=== PATIENT | male | born 1965 | race Caucasian/White ===

== ENCOUNTER 2016-11-24 22:48 | Observation (INO) | payer OTHER ==
[2016-11-25 00:02] LABS: #Basophils 0.1 thou/uL (0.0-0.2); #Eosinphils 0.1 thou/uL (0.0-0.7); #Lymphocytes 2.8 thou/uL (1.20-3.40); #Neutrophils 9.1 thou/uL (1.40-6.50); %Basophils 0.5 % (0.0-1.0); %Eosinophils 0.8 % (0.0-10.0); %Lymphocytes 21.5 % (21.0-51.0); %Monocytes 7.4 % (0.0-10.0); Hematocrit 41.5 % (42.0-52.0); Mean Platelet Volume 7.5 fL (7.4-10.4); Red Blood Cell (RBC) Count 4.39 mill/uL (4.70-6.10)
[2016-11-25] MEDS ORDERED: Ondansetron HCl/PF 4 MG/2 ML Vial ONE (00:03)
[2016-11-25 00:09] LABS: PTT 26.3 SEC (22.9-36.1); Prothrombin Time 14.2 SEC (12.0-14.7)
[2016-11-25 00:59] LABS: ALT (SGPT) 34 U/L (8-55); AST (SGOT) 25 U/L (5-34); Alkaline Phosphatase 68 U/L (40-150); Anion Gap 11 mmol/L (10-20); BUN (Urea Nitrogen) 14 mg/dL (8.4-25.7); Bilirubin, Total 0.8 mg/dL (0.2-1.2); Calc. Creatinine Clearance 0 mL/min (70-130); Calcium 9.4 mg/dL (7.8-10.44); Carbon Dioxide 28 mmol/L (22-29); Chloride 104 mmol/L (98-107); Estimated GFR-MDRD 78; Lipase 21 U/L (8-78); Protein, Total 7.1 g/dL (6.0-8.3)
[2016-11-25 02:25] LABS: Troponin I Less than 0.010 ng/mL (< 0.028)
[2016-11-25] MEDS ORDERED: Piperacillin/Tazobactam 4.5 GM VIAL ONE (02:28)
[2016-11-25] MEDS ORDERED: Sodium Chloride 0.9% 100 ML ONE (02:29)
[2016-11-25 02:31] LABS: Bilirubin Negative (Negative); Blood, Urine Negative (Negative); Glucose, Urine (Dipstick) Negative (Negative); Ketone, Urine Negative (Negative); Nitrite Negative (Negative); Protein, Urine (Dipstick) Negative (Neg-Trace)
[2016-11-25] MEDS ORDERED: Acetaminophen 325 MG TAB PO PRN (04:18)
[2016-11-25] MEDS ORDERED: Ondansetron ODT 4 MG TAB SL PRN (04:18)
[2016-11-25] MEDS ORDERED: Ondansetron HCl/PF 4 MG/2 ML Vial IVP PRN (04:18)
[2016-11-25] MEDS: Sodium Chloride 0.9% 1,000 ML IV SCH ×2 (04:22→14:00)
[2016-11-25 04:28] VITALS: BMI 31.9
--- NOTE | 2016-11-25 05:50 | PDOC.EVN ---
Event Note - Event Note Event Note: [id number] H&P Dictated 1. Scrotal Mass + Inguinal hernia 2. H/O HTN 3. H/O HPL 4. H/O Gout plan: see orders
--- NOTE | 2016-11-25 06:47 | HP ---
DATE OF ADMISSION: 11/25/2016 CHIEF COMPLAINT: Scrotal pain. HISTORY OF PRESENT ILLNESS: Patient is a 51-year-old male with past medical history of hypertension , hyperlipidemia, gout, came to the ER complaining of scrotal pain. The patient said he was doing h orse ride and all of sudden he felt a mass in the inguinal region radiating towards the scrotum melody on associated with some ecchymosis, swelling in the left-side with pain also. Pain is constant pain , 10/10 initially, currently 1/10, worsens with movement, had similar kind of pain in the past, but denies any mass in the past. Denies any fever, denies any chills, denies any cough, denies sputum p roduction. Denies any chest pain, denies any trouble breathing. PAST MEDICAL HISTORY: As per HPI. PAST SURGICAL HISTORY: Hip surgery, cholecystectomy. FAMILY HISTORY: Denies any heart problems. SOCIAL HISTORY: Positive for alcohol, denies smoking or drugs. MEDICATIONS: Reviewed. REVIEW OF SYSTEMS: Constitutional: Denies any fever, denies any chills. Eyes: Negative. Ears: Negative. Throat: Negative. Neck: Negative. Cardiovascular System: Denies any chest pain. Den ies any palpitations. Respiratory System: Denies any cough, denies sputum production. Genitourina ry: Positive for scrotal mass and ecchymosis and pain. Cranial Nerve System: Denies syncope, candace es lightheadedness. Psychiatric: Denies anxiety. Integument: Denies any rash. All other review of systems are reviewed and are negative. PHYSICAL EXAMINATION: CONSTITUTIONAL/VITAL SIGNS: At the time of H\T\P performed, blood pressure is 141/70, afebrile, pul se ox 97% on room air. GENERAL: The patient appears comfortable. HEENT: Pupils equal, round, and reactive. Anterior nares patent. Teeth intact. Tongue is moist. NECK: Supple, no JVD. CARDIOVASCULAR SYSTEM: S1, S2 present. Regular rate and rhythm. No murmurs, no rubs, no gallops. RESPIRATORY SYSTEM: No wheezing, no rhonchi. Breath sounds bilaterally. GASTROINTESTINAL: Abdomen is soft, nontender, no guarding, no organomegaly, no masses felt. GENITOURINARY: Positive for scrotal mass, positive for ecchymosis on the right scrotal region. INTEGUMENTARY: Positive for ecchymosis on the suprapubic region. PSYCHIATRIC: Mood appropriate at this time. MUSCULOSKELETAL: No edema. LABORATORY DATA: At the time of H\T\P performed, sodium 139, potassium 4.1, chloride 104, CO2 28, B UN 14, creatinine 1, glucose 104. White count 13, hemoglobin 14.1, platelet count is 201. IMAGING: CT report is pending. Testicular ultrasound preliminary hematoma seen. ASSESSMENT AND PLAN: The patient is a 51-year-old male: 1. Scrotal mass plus possibly inguinal hernia. Plan to consult General Surgery and also Urology to evaluate the patient. We will keep the patient n.p.o. We will monitor the patient closely. 2. Pain, p.r.n. pain medications. 3. Acute diverticulitis. Per ED physician, preliminary report was positive for diverticulitis. We will go ahead and start the patient on IV Cipro and Flagyl and we will keep the patient n.p.o. 4. History of hypertension. Monitor blood pressure. Continue blood pressure medications. 5. History of gastroesophageal reflux disease. Continue Allopurinol. 6. History of hyperlipidemia. Continue statin. The case was discussed in detail with the patient.
[2016-11-25 07:04] LABS: #Basophils 0.1 thou/uL (0.0-0.2); #Eosinphils 0.2 thou/uL (0.0-0.7); #Lymphocytes 2.3 thou/uL (1.20-3.40); #Monocytes 0.6 thou/uL (0.11-0.59); #Neutrophils 4.9 thou/uL (1.40-6.50); %Basophils 0.7 % (0.0-1.0); %Eosinophils 1.9 % (0.0-10.0); %Monocytes 7.9 % (0.0-10.0); Hematocrit 37.7 % (42.0-52.0); Mean Platelet Volume 7.8 fL (7.4-10.4); Red Blood Cell (RBC) Count 3.97 mill/uL (4.70-6.10)
[2016-11-25 07:28] LABS: Anion Gap 9 mmol/L (10-20); BUN (Urea Nitrogen) 13 mg/dL (8.4-25.7); Calc. Creatinine Clearance 168 mL/min (70-130); Calcium 8.5 mg/dL (7.8-10.44); Carbon Dioxide 27 mmol/L (22-29); Chloride 107 mmol/L (98-107); Estimated GFR-MDRD Greater than 90
[2016-11-25] MEDS ORDERED: Valsartan 80 MG TAB PO SCH (09:00)
[2016-11-25] MEDS ORDERED: Piperacillin/Tazobactam 3.375 GM in Sodium Chloride 0.9% 100 ML IVPB SCH (09:00)
[2016-11-25] MEDS ORDERED: Hydrochlorothiazide 25 MG TAB PO SCH (09:00)
[2016-11-25] MEDS ORDERED: HYDROcodone/Acetaminophen 7.5/325 mg Tablet PO PRN ×2 (09:49)
[2016-11-25] MEDS ORDERED: ISOVUE-370 76%-LOCM 1 ML ONE (12:00)
--- NOTE | 2016-11-25 12:08 | ULT ---
PRELIMINARY REPORT/[facility]/EMERGENCY AFTER HOURS PROCEDURE: EXAM: US Scrotum EXAM DATE/TIME: Exam ordered 11/24/2016 11:55 PM CLINICAL HISTORY: 51 years old, male; Pain; Groin pain and other: HX of hernia, S/P trama, rt groin pain, bilateralbru ising, swelling TECHNIQUE: Real-time ultrasound of the scrotum with color Doppler and image documentation. COMPARISON: No relevant prior studies available. FINDINGS: Right testicle: Testicular microlithiasis. Testicles otherwise normal with normal Doppler signal. No torsion. Left testicle: See above. Epididymides: Small incidental appendix epididymis. Scrotum: 2.1 cm hematoma in the inferior right scrotum. Diffuse scrotal wall thickening. Small bilat eral hydroceles. Inguinal canal: There is a heterogeneous solid mass in the right inguinal canal which was not evalua charlie with Doppler signal. This could be hernia or hematoma. IMPRESSION: 1. 2.1 cm hematoma in the inferior right scrotum. 2. Diffuse scrotal wall thickening. 3. Small bilateral hydroceles. 4. There is a heterogeneous solid mass in the right inguinal canal which was not evaluated with Dopp ler signal. This could be hernia or hematoma. 5. No testicular rupture. Thank you for allowing us to participate in the care of your patient. Dictated and Authenticated by: Jame Gonzales MD 11/25/2016 1:25 AM Central Time ([place] \T\ [place]) FINAL REPORT TESTICULAR ULTRASOUND WITH DOPPLER: Date: 11/24/16 HISTORY: Patient was in a rodeo and felt groin pain. Swelling of the scrotum. COMPARISON: None. FINDINGS: Findings and impression are concordant with the preliminary report. POS: [facility]
--- NOTE | 2016-11-25 12:10 | CT ---
PRELIMINARY REPORT/[facility]/EMERGENCY AFTER HOURS PROCEDURE: EXAM: CT Angiography Pelvis With Intravenous Contrast EXAM DATE/TIME: Exam ordered 11/25/2016 1:18 AM CLINICAL HISTORY: 51 years old, male; Pain; Other: Groin pain TECHNIQUE: Axial computed tomographic angiography images of the pelvis with intravenous contrast using CT angio graphy protocol. CONTRAST: 100 mL of ISOVUE administered intravenously. COMPARISON: No relevant prior studies available. FINDINGS: Aorta: No acute findings. No lower abdominal aortic aneurysm. No dissection. Inferior mesenteric artery: No acute findings. No occlusion or significant stenosis. Iliac arteries: No acute findings. No occlusion or significant stenosis. Bowel: Acute diverticulitis of the sigmoid colon. No obstruction. Appendix: Normal appendix. Intraperitoneal space: No pneumoperitoneum or abscess. No extravasation of intravascular contrast to indicate brisk active hemorrhage. Bladder: Suprapubic and scrotal wall contusion and hematoma. Reproductive: Bilateral hydroceles. Bones/joints: There is thickening of the proximal musculature of the medial compartment of the right thigh, compatible with intramuscular hematoma. Bilateral hip prostheses. No evidence of hardware co mplication or fracture No dislocation. Soft tissues: Right groin hematoma extending into the right inguinal canal. Lymph nodes: Unremarkable. No enlarged lymph nodes. IMPRESSION: 1. There is thickening of the proximal musculature of the medial compartment of the right thigh, com patible with intramuscular hematoma. 2. Right groin hematoma extending into the right inguinal canal. 3. Suprapubic and scrotal wall contusion and hematoma. 4. Bilateral hydroceles. 5. Acute diverticulitis of the sigmoid colon. Thank you for allowing us to participate in the care of your patient. Dictated and Authenticated by: Jame Gonzales MD 11/25/2016 2:01 AM Central Time ([place] \T\ [place]) FINAL REPORT CT ANGIOGRAM ABDOMEN AND PELVIS WITH CONTRAST: Date: 11/25/16 HISTORY: Recent hernia diagnosis. Patient was in a rodeo and felt swelling of the scrotum. TECHNIQUE: CT angiogram of abdomen and pelvis performed after the administration of contrast. 3D rendering prov ided. FINDINGS: Findings and impression are concordant with the preliminary report. In addition, there is likely a p artial tearing and stripping of the adductor musculature on the right from the pubic body as well as injury to the right pectineus muscle. This is likely the origin of the hematoma which extends into the scrotal wall. There are also calcifications along the right adductor musculature with some fatty atrophy suggesting acute on chronic injury. MRI recommended. POS: [facility]
--- NOTE | 2016-11-25 13:46 | CON ---
DATE OF CONSULTATION: 11/25/2016 CHIEF COMPLAINT: Right groin pain. HISTORY: This is a 51-year-old male who says he has been having about a 2-week history of some righ t groin pain they thought he might have early hernia. He was told to take it easy, but they did not tell him not to do rodeo. 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 He continued to w ork through it and continued to rope cattle and then his scrotum swelled up and became black and buzz e and he had trouble walking. He came to the hospital. PAST MEDICAL HISTORY: Significant for hypertension, hyperlipidemia, gout. PAST SURGICAL HISTORY: He has had laparoscopic cholecystectomy. He has had bilateral hip replaceme nts. MEDICATIONS: Allopurinol, simvastatin, losartan. ALLERGIES: No known drug allergies. FAMILY HISTORY: Noncontributory. SOCIAL HISTORY: Positive alcohol, rare tobacco. PHYSICAL EXAMINATION: VITAL SIGNS: Temperature 97.6, pulse 74, blood pressure 130/81. GENERAL: Well-developed, well-nourished, obese male in no apparent distress. HEENT: Unremarkable. LUNGS: Clear. HEART: Regular rate and rhythm. ABDOMEN: Obese, soft, nontender. GENITALIA: His scrotum is very distended and ecchymotic and tender. He has tenderness down into th e right thigh. There is some ecchymosis into the upper right medial thigh. I do not feel any defin ite hernias, no change with cough or Valsalva. EXTREMITIES: Otherwise unremarkable. IMAGING: He had a CT scan that showed a scrotal hematoma, thigh hematoma, inguinal hematoma, but no definite hernia. He had a testicular ultrasound that showed blood flow to the testicles. ASSESSMENT: Groin hematoma. PLAN: Ice, rest, scrotal support.
[2016-11-25 13:48] VITALS: BP 116/75; TEMP 98.3
--- NOTE | 2016-11-25 15:05 | DIS ---
DATE OF ADMISSION: 11/25/2016 DATE OF DISCHARGE: 11/25/2016 Patient was here for greater than 9 hours. DISCHARGE DIAGNOSES: 1. Right hip adductor musculature tear with hematoma and dependent travel to the scrotum. 2. Right inguinal pain. 3. Traumatic muscle tear secondary to Paton. 4. Hypertension. CONSULTATIONS: 1. General Surgery, Dr. Fenton. 2. Urology, Dr. Watkins. PROCEDURES: None. HISTORY AND PHYSICAL: Ms. Arevalo is a 51-year-old gentleman who came to the ER for a right groin pain. Workup revealed possible diverticulitis and possible hematoma versus hernia into the right s crotum. Patient was admitted for further workup. HOSPITAL COURSE: Patient was seen and examined and admitted from the emergency department. General Surgery and Urology were consulted, and both agreed there was no surgery or intervention needed, th is is certainly just a dependent fluid collection/hematoma due to the muscle tear. 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 Patient's pain was well controlled on oral pain medicines and he was cleared for discharge from a lemon rgical standpoint. DISCHARGE CONDITION: Stable. DISPOSITION: Patient has been discharged to home via vehicle. PHYSICAL EXAMINATION: The patient was seen and examined on the day of discharge. Discharge plan and disposition were discussed with the patient [id number] at the bedside. DISCHARGE MEDICATIONS: 1. Allopurinol 300 mg p.o. at bedtime. 2. Zocor 40 mg p.o. at bedtime. 3. Valsartan/hydrochlorothiazide 320/25 one tablet p.o. daily. NEW MEDICATIONS: 1. Cipro 500 mg p.o. b.i.d. for 10 days. 2. Metronidazole 500 mg p.o. t.i.d. for 10 days. 3. Hydrocodone/acetaminophen 7.5/325 one p.o. q.4 hours p.r.n. for severe pain. FOLLOWUP APPOINTMENT: Primary care physician within a week. Patient was instructed to return to the ER if worsening symptoms.
--- NOTE | 2016-11-25 17:56 | CON ---
DATE OF CONSULTATION: 11/25/2016 DATE OF HOSPITAL ADMISSION: 11/25/2016 CHIEF COMPLAINT: Scrotal hematoma. HISTORY OF PRESENT ILLNESS: Mr. Rajiv Arevalo is a very pleasant 51-year-old white male employed i n the [employer] in [place]. The patient was participating in a [employer] in association with [employer] yesterday and was struck by his horse saddle when the horse made a maneuver. The patie nt felt an instant popping sensation and subsequent to this swelling in his scrotum. The patient rm d undergone previous evaluation by his primary care physician and was thought to have an early right inguinal hernia. Today, the patient has right-sided swelling and ecchymosis as well as an evident hematoma. The patient has undergone CT scanning as well as a testicular ultrasound. He does not ap pear to have any testicular injury based on the imaging studies. There is a large amount of infiltr ated hematoma material involving the mons pubis and extension into the right hemiscrotum. Mr. Arevalo is not routinely followed by a urologist. PAST MEDICAL HISTORY: 1. Cholecystitis, status post cholecystectomy. 2. Osteoarthritis of the hips, status post bilateral hip replacement. 3. Previous groin injury. 4. Question of possible right inguinal canal hernia. FAMILY MEDICAL HISTORY: The patient's father is at age 61 secondary to cardiomyopathy and surgical treatment. The patient's father during the postoperative period. The patient's mother is alive and well in her 80s. The patient's only sibling is a sister who has k idney stones and one functioning kidney secondary to that. SOCIAL HISTORY: The patient is employed in the [employer]. He is a lifelong nonsmoker. He did have a history of tobacco chewing in the past, although he quit several years ago. He consum es approximately 7 alcoholic beverages per week. He does not report binge drinking. There is no hi story of other drug use. MEDICATIONS: The patient has had management for hypertension and takes Diovan valsartan 320 mg p.o. q. day as an outpatient. REVIEW OF SYSTEMS: GENERAL MALE HEALTH ISSUES: No complaints of voiding difficulties before or after his recent injur y. No current complaints of erectile dysfunction or other difficulties. No known PSA or previous e valuation by a urologist. The patient only reports scrotal swelling secondary to the recent injury. NEUROLOGIC: No seizure type of symptoms present. CARDIAC: Negative heart history. No complaints of chest pain. PULMONARY: Negative for pulmonary disorders and no shortness of breath or other respiratory difficu lties. GASTROINTESTINAL: The patient has had a recent cholecystectomy about 6 months ago performed laparos copically and has been told that he has diverticula from a colonoscopy and apparent diverticulitis o n this admission demonstrated by CT imaging; he is relatively asymptomatic with respect to that. MUSCULOSKELETAL: The patient has had bilateral hip replacement, reports no difficulties with those; he believes those issues were [facility] Review of systems otherwise negative x12 systems. PHYSICAL EXAMINATION: VITAL SIGNS: Temperature currently 98.3 F, pulse 69, respirations 16, O2 saturations 95% on room ai r, blood pressure is 116/75. HEAD, EYES, EARS, NOSE, AND THROAT: Extraocular movements are intact. Sclerae are anicteric. Orop harynx is clear. NEUROLOGIC: Cranial nerves III through XI appear to be intact. There are no gross motor deficits. The patient is able to ambulate on his own without difficulty. LUNGS: Clear to auscultation bilaterally. CARDIOVASCULAR: Regular rate and rhythm without murmur, rub, or gallop. ABDOMEN: Soft and nontender, scars consistent with the patient's known history of previous cholecys tectomy. BACK: No costovertebral angle tenderness. No point tenderness along the spine. No scar or strictu re. GENITOURINARY: The patient's scrotum and foreskin are swollen secondary to extravasation of blood i nto the subcutaneous tissues. There is actually hardening of this and induration which is more noti ceable on the right side. The patient's testes are palpable, but there appears to be some hydrocele fluid of relatively small volume around both of the testes. This is not large enough to require lemon rgical intervention. During the course of palpation, I feel some induration or hardness in the carmelo ent's right inguinal canal, this is more compatible with hematoma than a hernia to my exam. Digital rectal examination is performed and finds enlargement of the patient's prostate gland to greater th an 30 grams, it is smooth, anodular, nontender. Rectal tone is normal. EXTREMITIES: Appear within normal limits except for bilateral hip scar secondary to bilateral hip r eplacement. LABORATORY STUDIES AND X-RAY FINDINGS: The patient's urinalysis shows a urine specific gravity of 1 .060 at admission, which is very high consistent with dehydration. This would be concerning for kid katherine stone formation. There is no evidence of blood or leukocyte present in the patient's urine. Ur ine pH is 5.0. The patient's blood urea nitrogen was 13 with a creatinine of 0.82 this morning. Es timated GFR is greater than 90. The patient did have an elevation of his creatinine kinase yesterda y to 445 potentially consistent with a muscular injury. Hematologic profile last obtained this morn ing shows a white cell count of 8,000 down from 13,000 yesterday, hemoglobin is 12.6 with hematocrit of 37.7. There is no evidence of left shift or signs of early infection. ASSESSMENT: 1. Right scrotal hematoma. This is a problem which will probably take about 3 months to resolve. The patient's scrotum is indurated and there is some extravasation into the skin. This does not req uire an operative intervention. 2. Right and left hydrocele. These are small reactive type ones, possibly related to previous vase ctomy. At present time, no intervention is required for that. 3. Question of right inguinal canal hernia. To my exam, I am not able to demonstrate an actual her kellie. The patient's right inguinal canal has enough hematoma material and at this point, I cannot di stinguish as well that the patient actually has a hernia or not. This is a clinical examination whi ch is best performed when the patient does not have a large hematoma. I would not recommend explori ng this at the present time. Hematoma will take about 3 months to resolve with appropriate pain med ication and relief from strenuous physical activities is recommended. Over 55 minutes of initial consultation assessment time was spent with this patient today.
[2016-11-25] MEDS ORDERED: Allopurinol 300 MG TAB PO SCH (21:00)
[2016-11-25] MEDS ORDERED: Atorvastatin Calcium 20 MG TAB PO SCH (21:00)
--- NOTE | 2016-12-01 11:56 | EKG ---
Test Reason : SOB Blood Pressure : / mmHG Vent. Rate : 091 BPM Atrial Rate : 091 BPM P-R Int : 178 ms QRS Dur : 096 ms QT Int : 370 ms P-R-T Axes : 011 013 006 degrees QTc Int : 455 ms Normal sinus rhythm Normal ECG Confirmed by DESTINEE OSMAN, JUVENTINO ([id number]), photography editor GUERO BLANCO ([id number]) on 12/01/2016 11:55:45 AM Referred By: SAILAJA ROCHA Confirmed By:JUVENTINO FELIPE MD
== END 2016-11-25 14:35 | disposition home or self-care (01) ==
LOC: ERS 22:48 → SURG A 11-25 02:20
PROVIDERS: ADMIT Internal Medicine; ATTEND Internal Medicine
DX: S76.211A Strain of adductor muscle, fascia and tendon of right thigh, initial encounter (principal); S30.22XA Contusion of scrotum and testes, initial encounter; I10 Essential (primary) hypertension; E78.5 Hyperlipidemia, unspecified; M19.90 Unspecified osteoarthritis, unspecified site; Z90.49 Acquired absence of other specified parts of digestive tract; Z96.643 Presence of artificial hip joint, bilateral; Y93.52 Activity, horseback riding; Z79.899 Other long term (current) drug therapy
CPT/HCPCS: 36415; 72191; 76870; 80048; 80053; 81003; 82553; 83690; 84484; 85025; 85610; 85730; 93005; 93976; 94760; 96361; 96365; 96366; 96375; G0378; J2270; J2405; J2543; J7050